=== PATIENT | female | born 1990 | race Caucasian/White ===

== ENCOUNTER → 2017-02-17 | Outpatient (CLI) | payer BC ==
--- NOTE | 2017-02-17 18:33 | US ---
EXAMINATION TYPE: US pelvic complete DATE OF EXAM: 02/17/2017 6:12 PM COMPARISON: NONE CLINICAL HISTORY: N94.6 Dysmenorrhea. Pelvic pain TECHNIQUE: Transabdominal (TA) Date of LMP: About 3 weeks EXAM MEASUREMENTS: Uterus: 7.8 x 3.4 x 4.6 cm Endometrial Stripe: 1.0 cm Right Ovary: 3.3 x 1.8 x 2.7 cm Left Ovary: 3.0 x 1.6 x 2.2 cm TECHNOLOGIST IMPRESSION: 1. Uterus: Anteverted wnl 2. Endometrium: wnl 3. Right Ovary: wnl 4. Left Ovary: wnl Spectral, color and waveform doppler imaging shows good arterial and venous flow within the ovaries ; there is no evidence for ovarian torsion. 5. Bilateral Adnexa: wnl 6. Posterior cul-de-sac: wnl IMPRESSION: Normal transabdominal pelvic sonogram. No adnexal mass or free fluid.
== END ==
LOC: RADUSMAIN 17:56
PROVIDERS: ATTEND Obstetrics & Gynecology
DX: N94.6 Dysmenorrhea, unspecified (principal); Z31.9 Encounter for procreative management, unspecified
CPT/HCPCS: 76856; 84439; 84443